=== PATIENT | male | born 1970 | race Caucasian/White ===

== ENCOUNTER 2016-06-23 08:32 | Emergency (ER) | payer OTHER ==
[2016-06-23 08:48] VITALS: BP 109/79
--- NOTE | 2016-06-23 09:04 | UC ---
Respiratory Complaint HPI - HPI Summary HPI Summary: The patient comes in today for: 1. Sore throat, cough, sweating: Onset: 5 days ago. Palliative/provocative: swallowing makes it worse, as does hot liquids. Quality: Sore Region: Posterior pharynx. Severity: 5/10 Time: Constant. Associated symptoms: Rhinitis: None. Cough: Yellow Sinus pressure: Present-comes and goes. Fevers: Unknown. Chest pain: upper airway with coughing. Dyspnea: None * - History of Current Complaint Chief Complaint: UCRespiratory Stated Complaint: SORE THROAT Time Seen by Provider: 06/23/16 08:55 Hx Obtained From: Patient - Allergies/Home Medications Allergies/Adverse Reactions: Allergies Allergy/AdvReac Type Severity Reaction Status Date / Time No Known Drug Allergy Allergy Unknown Verified 06/23/16 08:40 Reaction Details seasonal Allergy Sneezing Uncoded 06/23/16 08:40 PMH/Surg Hx/FS Hx/Imm Hx Previously Healthy: No - Multiple operations right foot, sleep apnea. Endocrine History Of: Reports: Thyroid Disease - HYPOTHYROID, Dyslipidemia - He is on medication for this. Denies: Diabetes, Hyperthyroidism, Hypothyroidism Cardiovascular History Of: Reports: Hypertension - ON MEDICATION FOR Denies: Cardiac Disorders, Pacemaker/ICD, Myocardial Infarction, Congestive Heart Failure, Atrial Fibrillation, Deep Vein Thrombosis, Bleeding Disorders Respiratory History Of: Reports: Bronchitis - PRESENTLY STARTED ABOUT 3 DAYS AGO , ON ANTIBIOTIC Denies: COPD, Asthma, Pneumonia, Pulmonary Embolism GI/ History Of: Denies: Gastroesophageal Reflux, Ulcer, Gastrointestinal Bleed, Gall Bladder Disease, Kidney Stones, Diverticulitis, Renal Disease, Urosepsis Neurological History Of: Reports: Migraine - MAYBE 4 PER YEAR-NONE RECENTLY Denies: TIA, CVA, Dementia, Seizures Psychological History Of: Denies: Anxiety, Depression, Bipolar Disorder, Schizophrenia, Post Traumatic Stress Disorder Cancer History Of: Denies: Lung Cancer, Colorectal Cancer, Breast Cancer, Prostate Cancer, Cervical Cancer Other History Of: Negative For: HIV, Hepatitis B, Hepatitis C, Anticoagulant Therapy - Surgical History Surgical History: Yes Surgery Procedure, Year, and Place: 1990 RIGHT FOOT SURGERY FOR OSTEOMYLITIS, [facility]. 2014 RIGHT KNEE [place]ISC[place] [facility] [place] [facility] [place]. 2009 OPEN CHOLECYSTECTOMY, [facility]. 2008 BOWEL OBSTRUCTION, APPENDECTOMY REPAIR[facility]. 2011 SINUS SURGERY, [facility] - Family History Known Family History: Positive: Cardiac Disease, Hypertension - Social History Occupation: Unemployed Alcohol Use: None Substance Use Type: Prescribed Smoking Status (MU): Former Smoker Type: Cigarettes Amount Used/How Often: 3 PPD X 8 YRS Length of Time of Smoking/Using Tobacco: 8 YEARS Have You Smoked in the Last Year: No When Did the Patient Quit Smoking/Using Tobacco: 1994 - Immunization History Most Recent Influenza Vaccination: not this season Review of Systems Constitutional: Negative Skin: Negative Eyes: Negative ENT: Sore Throat Respiratory: Cough Cardiovascular: Negative Gastrointestinal: Negative Genitourinary: Negative All Other Systems Reviewed And Are Negative: Yes Physical Exam Triage Information Reviewed: Yes Appearance: Well-Appearing, No Pain Distress, Well-Nourished Vital Signs: Initial Vital Signs Temp 97.9 F 06/23/16 08:43 Pulse 77 06/23/16 08:43 Resp 16 06/23/16 08:43 BP 109/79 06/23/16 08:43 Pulse Ox 96 06/23/16 08:43 Vital Signs Reviewed: Yes Eyes: Positive: Conjunctiva Clear. Negative: Discharge ENT: Positive: Hearing grossly normal. Negative: Pharyngeal erythema, Nasal congestion, Nasal drainage, TM bulging, TM dull, TM red, Tonsillar swelling, Tonsillar exudate Dental: Negative: Gross Decay/Caries @, Dental Fracture @ Neck: Positive: Supple, Nontender, No Lymphadenopathy. Negative: Nuchal Rigidity Respiratory: Positive: Chest non-tender, Lungs clear, Normal breath sounds, No respiratory distress, No accessory muscle use. Negative: Accessory muscle use, Stridor, Wheezing Cardiovascular: Positive: RRR, No Murmur Abdomen Description: Positive: Nontender, No Organomegaly, Soft. Negative: Distended, Guarding Musculoskeletal: Positive: Strength Intact, ROM Intact Neurological: Positive: Alert, Muscle Tone Normal Psychological: Positive: Age Appropriate Behavior, Consolable Skin: Negative: rashes, breakdown UC Diagnostic Evaluation - Laboratory O2 Sat by Pulse Oximetry: 96 Respiratory Course/Dx - Differential Dx/Diagnosis Differential Diagnosis/HQI/PQRI: Bronchitis, Laryngitis, Sinusitis Provider Diagnoses: Bronchitis. Pharyngitis Discharge - Discharge Plan Condition: Stable Disposition: HOME Patient Education Materials: Pharyngitis (ED), Acute Bronchitis (ED) Referrals: Lorenzo Fierro MD [Primary Care Provider] - 1 Week (Please see your primary care provider in about a week to see how well you are doing. If you get worse, please be seen sooner.)
== END 2016-06-23 09:18 | disposition home or self-care (01) ==
LOC: UCCORT 08:32
DX: J40 Bronchitis, not specified as acute or chronic (principal); I10 Essential (primary) hypertension; E03.9 Hypothyroidism, unspecified; Z87.891 Personal history of nicotine dependence
CPT/HCPCS: 99212; G0463

== ENCOUNTER 2016-11-17 15:52 | Emergency (ER) | payer OTHER ==
[2016-11-17] MEDS ORDERED: Gadoteridol* (CONTRAST) 279.3 MG/ML 10 ML IV ONE (18:59)
--- NOTE | 2016-11-17 19:31 | RAD ---
INDICATION: Headaches COMPARISON: MRI brain June 11, 2008 TECHNIQUE: sagittal T1 FLAIR, axial diffusion, axial T1 FLAIR, axial T2, axial T2 FLAIR, and SWI images were acquired. The plantar T1-weighted is contrast images were acquired as well utilizing 20 mL of ProHance FINDINGS: Craniocervical junction: The craniocervical junction appears normal. Ventricles/sulci: The ventricles and cisterns are normal in size and configuration for age. Brain parenchyma: There are no focal parenchymal abnormalities. There is no abnormal enhancement. There is no evidence of intracranial mass or mass effect. The diffusion weighted images show no evidence of acute ischemia. Intracranial hemorrhage: There is no intracranial hemorrhage. Extra-axial spaces: There are no extra-axial fluid collections or masses. Orbits: There are no MR abnormalities of the orbital structures. Paranasal sinuses/mastoid: There is mild frontal sinusitis without acute air-fluid level. The remaining paranasal sinuses are clear. The mastoid air cells are well aerated.. Vascular: No abnormalities are seen. Other: None IMPRESSION: NO INTRACRANIAL ABNORMALITIES. MILD FRONTAL SINUSITIS
[2016-11-17] MEDS ORDERED: Ondansetron INJ* 2 MG/ML VIAL IV ONE (19:44)
[2016-11-17] MEDS ORDERED: HYDROmorphone* 1 MG/ML 1 ML SYR IV ONE (19:44)
[2016-11-17] MEDS ORDERED: Levofloxacin TAB* 250 MG PO ONE (20:18)
[2016-11-17] MEDS ORDERED: Levofloxacin TAB* 750 MG ONE (20:19)
[2016-11-17 20:28] VITALS: BP 116/74
--- NOTE | 2016-11-17 21:50 | ED ---
Rigoberto Yu Alfonso, scribed for Luis Alberto Leong MD on 11/17/16 at 1624 . Headache - HPI Summary HPI Summary: This patient is a 46 year old male presenting to [facility] for a constant sharp headache since 1300 today. This headache began in the occipital lobe (3 days ago ) and radiated to the adventism and eyes (1300 today). He reports never having a headache like this before. The pain is rated 7/10 in severity. Symptoms aggravated by light. Symptoms not alleviated by Tylenol, Excedrin, and ice. He denies nausea, weakness, numbness, tingling, and a sore neck. Patient referred to ED from [facility] for a neurology consult. - History Of Current Complaint Chief Complaint: EDHeadache Stated Complaint: NEUROLOGY CONSULT Time Seen by Provider: 11/17/16 16:07 Hx Obtained From: Patient Onset/Duration: Sudden Onset, Started days ago - 3 days ago, Still Present Initially Headache Was: Moderate Currently Pain Is: Current Pain Scale(0-10)= - 7/10, Moderate Timing: Constant, Days - 3 days Character: Sharp Location of Headache: Occipital Radiates to: Radiated to the adventism and eyes at 1300 today Aggravating Factor: Bright Lights Allevating Factors: Nothing, Other (Noted In Comments) - Symptoms not alleviated by Tylenol, Excedrin, and ice Associated Signs And Symptoms: Other (Noted In Comments) - Denies nausea, weakness, numbness, tingling, and a sore neck - Allergies/Home Medications Allergies/Adverse Reactions: Allergies Allergy/AdvReac Type Severity Reaction Status Date / Time No Known Drug Allergy Allergy Unknown Verified 06/23/16 08:40 Reaction Details seasonal Allergy Sneezing Uncoded 06/23/16 08:40 PMH/Surg Hx/FS Hx/Imm Hx Endocrine/Hematology History: Reports: Hx Thyroid Disease - HYPOTHYROID Denies: Hx Anticoagulant Therapy, Hx Diabetes Cardiovascular History: Reports: Hx Hypertension - ON MEDICATION FOR Denies: Hx Congestive Heart Failure, Hx Deep Vein Thrombosis, Hx Myocardial Infarction, Hx Pacemaker/ICD Respiratory History: Reports: Hx Sleep Apnea Denies: Hx Asthma, Hx Chronic Obstructive Pulmonary Disease (COPD), Hx Lung Cancer, Hx Pneumonia, Hx Pulmonary Embolism GI History: Reports: Hx Gastroesophageal Reflux Disease - NO PROBLEMS SINCE TAKING PROBIOTIC - 5-6 YEARS, Hx Hiatal Hernia - HAD SURGERY Denies: Hx Gall Bladder Disease, Hx Gastrointestinal Bleed, Hx Ulcer, Hx Urosepsis History: Denies: Hx Kidney Stones, Hx Renal Disease Musculoskeletal History: Reports: Hx Arthritis - BILAT KNEES, RIGHT ANKLE, FOOT , Hx Bursitis - RIGHT FOOT Sensory History: Denies: Hx Contacts or Glasses, Hx Hearing Aid Opthamlomology History: Denies: Hx Contacts or Glasses Neurological History: Reports: Hx Migraine - MAYBE 4 PER YEAR-NONE RECENTLY Denies: Hx Dementia, Hx Seizures, Hx Transient Ischemic Attacks (TIA), Other Neuro Impairments/Disorders Psychiatric History: Denies: Hx Anxiety, Hx Depression, Hx Panic Disorder, Hx Schizophrenia, Hx Bipolar Disorder - Surgical History Surgery Procedure, Year, and Place: 1990 RIGHT FOOT SURGERY FOR OSTEOMYLITIS, [facility]. 2014 [place] [facility] [place] [facility] [place] 2009 OPEN CHOLECYSTECTOMY, [facility]. 2008 BOWEL OBSTRUCTION, APPENDECTOMY REPAIR[facility]. 2010 SINUS SURGERY, [facility] Anesthesia Reactions: No Infectious Disease History: Denies: Traveled Outside the in Last 30 Days - Family History Known Family History: Positive: Cardiac Disease, Hypertension - Social History Alcohol Use: None Substance Use Type: Reports: Prescribed Smoking Status (MU): Former Smoker Type: Cigarettes Amount Used/How Often: 3 PPD X 8 YRS Length of Time of Smoking/Using Tobacco: 8 YEARS Have You Smoked in the Last Year: No Review of Systems Negative: Nausea Positive: Arthralgia - Negative sore neck Neurological: Other - Negative weakness Positive: Headache - This thunder clap headache began in the occipital lobe (3 days ago) and radiated to the adventism and eyes (1300 today).. Negative: Weakness , Numbness All Other Systems Reviewed And Are Negative: Yes Physical Exam Triage Information Reviewed: Yes Vital Signs On Initial Exam: Initial Vitals Pulse Resp BP Pulse Ox 78 17 127/80 96 11/17/16 15:57 11/17/16 15:57 11/17/16 15:57 11/17/16 15:57 Vital Signs Reviewed: Yes Appearance: Positive: Well-Appearing, No Pain Distress, Obese Skin: Positive: Warm, Skin Color Reflects Adequate Perfusion, Dry Head/Face: Positive: Normal Head/Face Inspection Eyes: Positive: Normal ENT: Positive: Normal ENT inspection Neck: Positive: Supple, Nontender Respiratory/Lung Sounds: Positive: Clear to Auscultation, Breath Sounds Present Cardiovascular: Positive: RRR Abdomen Description: Positive: Nontender, Soft Bowel Sounds: Positive: Present Musculoskeletal: Positive: Normal Neurological: Positive: Normal, Sensory/Motor Intact, Alert, Oriented to Person Place, Time, CN Intact II-III Psychiatric: Positive: Affect/Mood Appropriate Diagnostics - Vital Signs Vital Signs Pulse Resp BP Pulse Ox 11/17/16 15:57 78 17 127/80 96 - Laboratory Lab Statement: Any lab studies that have been ordered have been reviewed, and results considered in the medical decision making process. - Additional Comments Diagnostic Additional Comments: Brain MRI : NO INTRACRANIAL ABNORMALITIES. MILD FRONTAL SINUSITIS Headache Course/Dx - Course Course Of Treatment: Mr. Roque was sent over from [place] ED for evaluation of a OSORIO that came on suddenly and has lasted 3 days. He has had a litlle bloody D/C from his right nare when blowing. His W/U in [place] was unremarkable except for an unusual area of hyperattenuation on CT. An MRI was recommended. Dr. Lopez was consulted and agreed with the MRI which was negative except for sinusitis. I will treat him for sinusitis and recommend F/ U. - Diagnoses Provider Diagnoses: Sinusitis - Physician Notifications Discussed Care Of Patient With: Lindsay Lopez Time Discussed With Above Provider: 16:53 Instructed by Provider To: Other - Dr. Lopez (neurologist) was consulted and will call back with treatment plan. Discharge - Discharge Plan Condition: Stable Disposition: HOME Prescriptions: Levofloxacin TAB* [Levaquin TAB*] 750 mg PO DAILY #10 tab Patient Education Materials: Sinusitis (ED) Referrals: Lorenzo Fierro MD [Primary Care Provider] - 3 Days The documentation as recorded by the Rigoberto corea Alfonso accurately reflects the service I personally performed and the decisions made by me, Luis Alberto Leong MD.
== END 2016-11-17 20:30 | disposition home or self-care (01) ==
LOC: ED 15:52
DX: J32.9 Chronic sinusitis, unspecified (principal); R51 Headache; Z87.891 Personal history of nicotine dependence
CPT/HCPCS: 70553; 96374; 96375; 99283; A9270-GY; A9579; J1170; J2405

== ENCOUNTER 2017-07-09 07:15 | Emergency (ER) | payer OTHER ==
[2017-07-09 07:26] VITALS: BP 144/90
--- NOTE | 2017-07-09 07:42 | UC ---
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 denies fever or any other sx but cough is interrupting sleep. " Quit smoking 25 yrs ago. Had forehead pressure 3 days ago but that resolved. no known fever. no wheezing. + body aches. Exposed to flu at his friends house - child in that household is now hospitalized with flu. - History of Current Complaint Chief Complaint: UCRespiratory Stated Complaint: PRODUCTIVE COUGH Pain Intensity: 0 - Allergies/Home Medications Allergies/Adverse Reactions: Allergies Allergy/AdvReac Type Severity Reaction Status Date / Time amoxicillin [From Augmentin] Allergy Intermediate Rash Verified 07/09/17 07:27 clavulanic acid Allergy Intermediate Rash Verified 07/09/17 07:27 [From Augmentin] seasonal Allergy Sneezing Uncoded 01/20/17 09:33 Home Medications: Home Medications Thyroid,Pork [[place] Thyroid] 07/09/17 [History] oxyCODONE/Acetamin 5/325 MG* [Percocet 5/325 TAB*] 07/09/17 [History] PMH/Surg Hx/FS Hx/Imm Hx Previously Healthy: Yes Endocrine History: Hypothyroidism Cardiovascular History: Hypertension Other History Of: Negative For: HIV, Hepatitis B, Hepatitis C, Anticoagulant Therapy - Surgical History Surgical History: Yes Surgery Procedure, Year, and Place: 1990 RIGHT FOOT SURGERY FOR OSTEOMYLITIS, [facility]. 2014 RIGHT KNEE TORN MENISCUS REPAIR, [facility] [place]. 09/2014 RIGHT FOOT FUSION, [facility] [place]. 2009 OPEN CHOLECYSTECTOMY, [facility]. 2008 BOWEL OBSTRUCTION, APPENDECTOMY REPAIR-[facility]. 2011 SINUS SURGERY, [facility] - Family History Known Family History: Positive: Cardiac Disease, Hypertension - Social History Alcohol Use: None Substance Use Type: Prescribed Smoking Status (MU): Former Smoker Type: Cigarettes Amount Used/How Often: 3 PPD X 8 YRS Length of Time of Smoking/Using Tobacco: 8 YEARS Have You Smoked in the Last Year: No When Did the Patient Quit Smoking/Using Tobacco: 1994 Household Exposure Type: Cigarettes - Immunization History Most Recent Influenza Vaccination: not this season Review of Systems Constitutional: Chills, Fatigue Skin: Negative Eyes: Negative ENT: Sore Throat, Ear Ache, Nasal Discharge Respiratory: Cough Cardiovascular: Negative Gastrointestinal: Negative Genitourinary: Negative Motor: Negative Neurovascular: Negative Musculoskeletal: Myalgia Neurological: Negative Psychological: Negative Is Patient Immunocompromised?: No All Other Systems Reviewed And Are Negative: Yes Physical Exam Triage Information Reviewed: Yes Appearance: Well-Appearing, No Pain Distress, Well-Nourished Vital Signs: Initial Vital Signs Temp 98.6 F 07/09/17 07:21 Pulse 100 07/09/17 07:21 Resp 18 07/09/17 07:21 BP 144/90 07/09/17 07:21 Pulse Ox 97 07/09/17 07:21 Eye Exam: Normal ENT: Positive: Hearing grossly normal, Pharyngeal erythema, Nasal congestion, TMs normal. Negative: Tonsillar swelling, Tonsillar exudate, Sinus tenderness Neck exam: Normal Neck: Positive: Supple, Nontender, No Lymphadenopathy Respiratory: Positive: Lungs clear, Normal breath sounds, No respiratory distress, No accessory muscle use, Other: - initial mild wheeze on left that cleared with loud cough. that was the only time he coughed during entire visit.. Negative: Crackles, Rhonchi, Stridor, Wheezing Cardiovascular Exam: Normal Cardiovascular: Positive: RRR, No Murmur, Pulses Normal Abdomen Description: Positive: Nontender, Soft Neurological Exam: Normal Psychological Exam: Normal Skin Exam: Normal UC Diagnostic Evaluation - Laboratory O2 Sat by Pulse Oximetry: 97 Respiratory Course/Dx - Course Course Of Treatment: influenza rapid negative - Differential Dx/Diagnosis Differential Diagnosis/HQI/PQRI: Asthma, Bronchitis, Influenza, Sinusitis Provider Diagnoses: viral URI Discharge - Discharge Plan Condition: Stable Disposition: HOME Referrals: Lorenzo Fierro MD [Primary Care Provider] -
== END 2017-07-09 08:18 | disposition home or self-care (01) ==
LOC: UCCORT 07:15
DX: J06.9 Acute upper respiratory infection, unspecified (principal); Z87.891 Personal history of nicotine dependence
CPT/HCPCS: 87502; 99212; G0463

== ENCOUNTER 2017-07-20 12:11 | Emergency (ER) | payer OTHER ==
[2017-07-20] MEDS ORDERED: Ketorolac INJ* 30 MG/ML 1 ML VIAL IM ONE (14:08)
--- NOTE | 2017-07-20 14:12 | UC ---
Shoulder Pain HPI - HPI Summary HPI Summary: 47 yo male with gradual onset of progressively worsening right shoulder pain no injury he is unable to move shoulder - History of Current Complaint Chief Complaint: UCUpperExtremity Stated Complaint: RT SHOULDER COMPLAINT Time Seen by Provider: 07/20/17 14:01 Hx Obtained From: Patient Onset/Duration: Gradual Onset, Lasting Days Timing: Constant Severity Initially: Severe Severity Currently: Severe Location Of Pain: Is Discrete @ Pain Intensity: 10 Pain Scale Used: 0-10 Numeric Character: Sharp, Dull, Aching, Throbbing, Spasmodic Aggravating Factor(s): Movement, Lifting, Internal Rotation, External Rotation, Abduction Alleviating Factor(s): Nothing Related History: Dominant Hand Right - Allergies/Home Medications Allergies/Adverse Reactions: Allergies Allergy/AdvReac Type Severity Reaction Status Date / Time amoxicillin [From Augmentin] Allergy Intermediate Rash Verified 07/20/17 13:53 clavulanic acid Allergy Intermediate Rash Verified 07/20/17 13:53 [From Augmentin] seasonal Allergy Sneezing Uncoded 07/20/17 13:53 Home Medications: Home Medications Cyclobenzaprine TAB* [Flexeril 10 MG TAB*] 5 mg PO TID PRN 07/20/17 [History Confirmed 07/20/17] Pravastatin Sodium [Pravachol] 40 mg PO DAILY 07/20/17 [History Confirmed ] PMH/Surg Hx/FS Hx/Imm Hx Previously Healthy: Yes Cardiovascular History: Hypertension GI/ History: Ulcer Other History Of: Negative For: HIV, Hepatitis B, Hepatitis C, Anticoagulant Therapy - Surgical History Surgical History: Yes Surgery Procedure, Year, and Place: 1990 RIGHT FOOT SURGERY FOR OSTEOMYLITIS, [facility]. 2014 RIGHT KN[place] [facility] [place] [facility] [place] 2010 OPEN CHOLECYSTECTOMY, [facility]. 2009 BOWEL OBSTRUCTION, APPENDECTOMY REPAIR-[facility]. 2011 SINUS SURGERY, [facility] - Family History Known Family History: Positive: Cardiac Disease, Hypertension, Diabetes - Social History Alcohol Use: None Substance Use Type: Prescribed Smoking Status (MU): Former Smoker Type: Cigarettes Amount Used/How Often: 3 PPD X 8 YRS Length of Time of Smoking/Using Tobacco: 8 YEARS Have You Smoked in the Last Year: No When Did the Patient Quit Smoking/Using Tobacco: 1994 Household Exposure Type: Cigarettes - Immunization History Most Recent Influenza Vaccination: not this season Review of Systems Constitutional: Negative Skin: Negative Eyes: Negative ENT: Negative Respiratory: Negative Cardiovascular: Negative Gastrointestinal: Negative Genitourinary: Negative Motor: Negative Neurovascular: Negative Musculoskeletal: Arthralgia Neurological: Negative Psychological: Negative Is Patient Immunocompromised?: No All Other Systems Reviewed And Are Negative: Yes Physical Exam Triage Information Reviewed: Yes Appearance: Well-Appearing, No Pain Distress, Well-Nourished Vital Signs: Initial Vital Signs Temp 98.1 F 07/20/17 13:57 Pulse 98 07/20/17 13:57 Resp 20 07/20/17 13:57 BP 134/101 07/20/17 13:57 Pulse Ox 98 07/20/17 13:57 Vital Signs Reviewed: Yes Eyes: Positive: Conjunctiva Clear ENT: Positive: Hearing grossly normal, Uvula midline. Negative: Nasal congestion, Nasal drainage, Tonsillar swelling, Tonsillar exudate, Trismus, Muffled voice, Dental tenderness, Sinus tenderness Neck: Positive: Supple, Nontender, No Lymphadenopathy Respiratory: Positive: Lungs clear, Normal breath sounds, No respiratory distress, No accessory muscle use Cardiovascular: Positive: RRR, No Murmur Musculoskeletal: Positive: No Edema, ROM Limited @ - right shoulder Neurological: Positive: Alert Psychological Exam: Normal Skin Exam: Normal Diagnostics - Radiology No standard instances Xray Interpretation: Positive (See Comments) - IMPRESSION: Mild widening of AC joint. Irregularity presumably in the anterior labrum for which a labral tear or bony fragment cannot BE excluded. Radiology Interpretation Completed By: Radiologist Shoulder Course/Dx - Differential Dx/Diagnosis Provider Diagnoses: right shoulder pain. ? torn labrum vs calcific tendonitis vs other Discharge - Discharge Plan Condition: Stable Disposition: HOME Patient Education Materials: Shoulder Pain (ED) Referrals: Zak Hurt MD [Medical Doctor] - Additional Instructions: sling I suggest you try to get into see Dr. Hurt tomorrow You may need an MRI to determine the cause of this Images Front/Back of Body, Lg ([place]): 1 - tender bicipital groove. unable to abduct. pain externally rotating >> int rotating
--- NOTE | 2017-07-20 15:00 | RAD ---
Indication: Right shoulder pain. 4 views of the right shoulder demonstrates mild widening of AC joint. There may be a bony fragment adjacent to the anterior labrum. IMPRESSION: Mild widening of AC joint. Irregularity presumably in the anterior labrum for which a labral tear or bony fragment cannot BE excluded.
[2017-07-20 15:10] VITALS: BP 126/77
== END 2017-07-20 15:14 | disposition home or self-care (01) ==
LOC: UCCORT 12:11
DX: M25.511 Pain in right shoulder (principal); I10 Essential (primary) hypertension
CPT/HCPCS: 96372; 99213; G0463; J1885

== ENCOUNTER 2017-10-11 06:19 | Day surgery (SDC) | payer OTHER ==
--- NOTE | 2017-10-03 23:40 | HP ---
HISTORY AND PHYSICAL: DATE OF SURGERY/ADMISSION: 10/11/17 DATE OF OFFICE VISIT: 10/03/17 SURGEON: Huyen Crespo MD * (DICTATED BY ARAM NELSON) PROCEDURE: Right knee arthroscopy with partial lateral meniscectomy, possible chondroplasty, possible synovectomy. CHIEF COMPLAINT: Right knee pain. HISTORY OF PRESENT ILLNESS: Mr. Roque is a 47-year-old gentleman with continued complaints of right knee pain. An MRI confirms a lateral meniscus tear and he has elected to proceed with surgery, which is scheduled for with Dr. Crespo. PAST MEDICAL HISTORY: Hypertension, hypothyroidism, and sleep apnea. PAST SURGICAL HISTORY: Right foot surgery x3, right knee arthroscopy, sinus surgery, cholecystectomy, and appendectomy. CURRENT MEDICATIONS: 1. Vitamin C. 2. Turmeric. 3. Probiotic. 4. [place] Thyroid 180 mg daily. 5. Toprol 100 mg daily. ALLERGIES: AUGMENTIN. FAMILY HISTORY: Diabetes, coronary artery disease, cancer, and hypertension. SOCIAL HISTORY: This is a 47-year-old gentleman, lives with is girlfriend. He does not smoke, use drugs, or alcohol. REVIEW OF SYSTEMS: A complete 14-point review of systems was reviewed with the patient. It was positive for hypothyroidism. He denies a history of DVT, PE, hepatitis C, HIV, or anesthesia problems. PHYSICAL EXAMINATION GENERAL: He is well developed, well nourished, in no acute distress. He is alert and oriented x3. VITAL SIGNS: He stands 5 feet 8 inches tall, weighs 245 pounds. His blood pressure is 131/88, his heart rate is 86. HEENT: Normocephalic, atraumatic. NECK: Supple. No palpable lymph nodes. PULMONARY: The lungs are clear to auscultation bilaterally. CARDIO: Regular rate and rhythm. Strong S1, S2. ABDOMEN: Soft, nontender, nondistended. MUSCULOSKELETAL: Right lower extremity, the skin is intact. There are no open wounds or abrasions. He has a mild joint effusion. Some tenderness over the lateral joint line. Negative Adam. 2+ dorsalis pedis pulses. His lower extremity muscle group strengths are intact at 5/5, and he has intact sensation. NEUROLOGICAL: Cranial nerves II through XII are intact. ASSESSMENT AND PLAN: Mr. Roque is a 47-year-old gentleman with continued complaints of right knee pain. An MRI confirms a lateral meniscus tear and he has elected to proceed with right knee arthroscopy with partial lateral meniscectomy, possible chondroplasty, possible synovectomy. The surgery is scheduled for 10/11/[address] Cresop discussed the risks and benefits of the surgery at today's visit and all of his questions were answered. He will follow up with Dr. Crespo in 2 weeks after the surgery. ARAM NELSON [id number]/[facility] #: [id number] ALLEN
[~2017-10-11 06:19] MED LIST: Buffered Lidocaine 0.9% SYRIN* 5 ML/SYR SYRINGE INTRADERM ONE
[2017-10-11] MEDS ORDERED: ceFAZolin 2 GM PREMIX (*) 2 GM/50 ML BAG IVPB ONE (06:32)
[2017-10-11] MEDS ORDERED: Buffered Lidocaine 0.9% SYRIN* 5 ML/SYR SYRINGE ONE (06:32)
[2017-10-11] MEDS ORDERED: EPINEPHRINE 1 MG/ML 1 ML VIAL ONE ×2 (06:47→08:13)
[2017-10-11] MEDS ORDERED: methylPREDNISolone ACETATE 80* 80 MG/ML 1 ML VIAL ONE (06:47)
[2017-10-11] MEDS ORDERED: Bupivacaine 0.25% SDV* 30 ML ONE (06:48)
[2017-10-11] MEDS ORDERED: Scopolamine 1.5 mg* PATCH ONE (07:20)
[2017-10-11] MEDS ORDERED: Dexamethasone IV* 4 MG/ML 1 ML (4 MG) ONE (07:22)
[2017-10-11] MEDS ORDERED: Midazolam* 1 MG/ML 5 ML VIAL (5 MG) ONE (07:22)
[2017-10-11] MEDS ORDERED: fentaNYL* 50 MCG/ML 2 ML VIAL (100 MCG VIAL) ONE ×2 (07:22→08:44)
[2017-10-11] MEDS ORDERED: Propofol* 10 MG/ML 20 ML BTL IV PUSH ONE (07:22)
[2017-10-11] MEDS ORDERED: Ondansetron INJ* 2 MG/ML VIAL IV PRN (08:00)
[2017-10-11] MEDS ORDERED: Naloxone* 0.4 MG/ML 1 ML VIAL IV PRN (08:00)
[2017-10-11] MEDS ORDERED: HYDROcodone/ACETAMIN 5-325 MG* 1 TAB PO PRN (08:00)
[2017-10-11] MEDS ORDERED: DiMENhydriNATE IV* 50 MG/ML VIAL IV PUSH PRN (08:00)
[2017-10-11] MEDS ORDERED: oxyCODONE/Acetamin 5/325 MG* TAB PO PRN (08:00)
[2017-10-11] MEDS ORDERED: oxyCODONE/Acetamin 5/325 MG* TAB ONE (08:44)
[2017-10-11] MEDS: fentaNYL* 50 MCG/ML 2 ML VIAL (100 MCG VIAL) IV PRN ×2 (08:49→08:57)
[2017-10-11 09:50] VITALS: BP 129/88
--- NOTE | 2017-10-12 06:44 | OP ---
OPERATIVE REPORT: DATE OF OPERATION: 10/11/17 DATE OF : 70 SURGEON: Huyen Crespo MD BOATBUILDER WOOD: ARAM Barragan Ms. did help throughout the procedure with preparation of the leg, wound retraction, manipulation of the knee and wound closure. ANESTHESIOLOGIST: Tex San MD ANESTHESIA: General. PRE-OP DIAGNOSES: Right knee lateral meniscal tear, moderate osteoarthritis. POST-OP DIAGNOSES: Right knee lateral meniscal tear, severe degenerative osteoarthritis in a tricompartmental fashion. OPERATIVE PROCEDURE: Right knee arthroscopy with partial lateral meniscectomy. INDICATIONS: Mr. Brown is a 47-year-old gentleman, who had an acute injury when he fell down a bank several weeks ago twisting his right knee. He had difficulty extending the knee and weightbearing. He had mechanical symptoms consistent with meniscal tear and a lateral meniscal tear was confirmed on MRI. Due to the severe pain and decreased range of motion, the patient elected to have right knee arthroscopy with partial lateral meniscectomy. Informed consent was obtained from the patient. He understood the risks of surgery included but were not limited to damage to nearby structures, continued pain, need for further surgery, re-tear of the meniscus, stroke, heart attack, blood clot, and . He wished to proceed. COMPLICATIONS: None. SPECIMEN: None. ESTIMATED BLOOD LOSS: Less than 25 cc. INTRAOPERATIVE FINDINGS: Intraoperatively, the patient was noted to have a radial- type tear at the junction of the posterior middle thirds of the lateral meniscus. Also, a linear tear in the white-red zone extending along the posterior horn of the lateral meniscus. This involved the white-red and red- red zone. The patient was noted to have grade 3 and 4 Outerbridge cartilage changes in all 3 compartments. DESCRIPTION OF PROCEDURE: Mr. Brown was identified in the preanesthesia unit. His right lower extremity was marked as the correct operative side. Informed consent was signed and placed in chart. The patient was taken to the operating room and placed under general anesthesia. His right lower extremity was prepped and draped in the usual sterile fashion. Preop time-out was made to once again identify the patient's side and site. Appropriate perioperative antibiotics were given within 1 hour of incision. A 0.5-cm anterolateral portal incision was made with a 15 blade. This was carried down through the capsule. Trocar was introduced. The light and water sources were turned on. The suprapatellar pouch was immediately well visualized. A tour of the knee joints was performed. Suprapatellar pouch had no obvious abnormality. The patellofemoral compartment had exposed subchondral bone along the medial patellar facet, lateral patellar facet, and trochlear groove of the femur. This was grade 3 and 4 Outerbridge cartilage changes with severe arthritic changes noted. Medial gutters showed no loose body or plica. Medial compartment showed grade 3 and 4 Outerbridge cartilage change of medial femoral condyle. No obvious meniscal tear was noted. ACL and PCL were intact with some anterior inflammatory tissue. The knee was placed in a figure-of-4 position. A radial tear of the lateral meniscus was noted at the junction of the posterior and middle third of the meniscus. Linear tear was also noted in the white-red zone extending into the posterior horn of the lateral meniscus. There were grade 3 and 4 Outerbridge cartilage changes along the lateral femoral condyle and tibial plateau. Lateral gutters showed no obvious abnormality. Under direct visualization, a medial portal incision was made. A probe was introduced and a second tour of the knee joint was performed. No additional findings were noted. A straight biter was used to perform partial lateral meniscectomy until smooth border of meniscus was obtained. Radiofrequency ablation wand and shaver were used to further smooth the edge of the lateral meniscus. Further probing of the lateral meniscus showed no additional tears or flipped fragments. Probing of the medial meniscus showed no obvious meniscal tear. There were no specific cartilage flaps amenable to chondroplasty. The knee was copiously irrigated with sterile saline. All instruments were carefully removed. The incisions were closed using interrupted nylon 3-0 suture. Intraarticular injection of 80 mg Depo-Medrol and 6 cc of 0.25% Marcaine was placed in the knee joint. The patient's incisions were covered with Xeroform, 4x4s, and Webril. Eduard wrap and cold pack were placed over this. The patient's anesthesia was reversed without difficulty. He was taken to the PACU in stable condition. Intended weightbearing will be weightbearing as tolerated. Intended DVT prophylaxis will be aspirin. He will follow up in 2 weeks' time for incision check. [id number]/[facility] #: [id number] KALEIDA HEALTHBrenda
== END 2017-10-11 10:05 | disposition home or self-care (01) ==
LOC: OR 06:19
PROVIDERS: ATTEND Orthopaedic Surgery Adult Reconstructive Orthopaedic Surgery
DX: S83.281A Other tear of lateral meniscus, current injury, right knee, initial encounter (principal); W17.81XA Fall down embankment (hill), initial encounter; Y92.89 Other specified places as the place of occurrence of the external cause; I10 Essential (primary) hypertension; E03.9 Hypothyroidism, unspecified; G47.30 Sleep apnea, unspecified
CPT/HCPCS: A9270-GY; J0690; J1040; J1100; J2250; J2704; J3010

== ENCOUNTER 2017-10-17 07:25 | Emergency (ER) | payer OTHER ==
[2017-10-17 07:38] VITALS: BP 147/87
--- NOTE | 2017-10-17 07:54 | UC ---
Respiratory Complaint HPI - HPI Summary HPI Summary: 47 yo male with cough and sore throat x 5 days had menicus surgery 10/11 no fever or chills has brought up a lot of phelgm has gagged on phelgm no CP or SOB - History of Current Complaint Chief Complaint: UCRespiratory Stated Complaint: COUGH/ST Time Seen by Provider: 10/17/17 07:42 Hx Obtained From: Patient Onset/Duration: Gradual Onset, Lasting Days Timing: Constant Severity Initially: Moderate Severity Currently: Moderate Pain Intensity: 6 - throat Pain Scale Used: 0-10 Numeric Character: Cough: Productive Aggravating Factors: Deep Breaths Alleviating Factors: Bronchodilator - Allergies/Home Medications Allergies/Adverse Reactions: Allergies Allergy/AdvReac Type Severity Reaction Status Date / Time amoxicillin [From Augmentin] Allergy Intermediate Rash Verified 10/11/17 06:44 clavulanic acid Allergy Intermediate Rash Verified 10/11/17 06:44 [From Augmentin] seasonal Allergy Sneezing Uncoded 10/11/17 06:44 PMH/Surg Hx/FS Hx/Imm Hx Previously Healthy: Yes Respiratory History: Bronchitis - recently admitted for it (4 mos ago) Other History Of: Negative For: HIV, Hepatitis B, Hepatitis C, Anticoagulant Therapy - Surgical History Surgical History: Yes Surgery Procedure, Year, and Place: 1990 RIGHT FOOT SURGERY FOR OSTEOMYLITIS, [facility]. 2014 RIGHT KNEE TORN MENISCUS REPAIR, [facility]. 09/2014 RIGHT FOOT FUSION, [facility]. 2010 OPEN CHOLECYSTECTOMY, [facility]. 2008 BOWEL OBSTRUCTION, APPENDECTOMY REPAIR-[facility]. 2011 SINUS SURGERY, [facility]. 2018 right meniscus repair - Family History Known Family History: Positive: Cardiac Disease, Hypertension, Diabetes - Social History Alcohol Use: None Substance Use Type: None Smoking Status (MU): Former Smoker Type: Cigarettes Amount Used/How Often: 3 PPD X 8 YRS Length of Time of Smoking/Using Tobacco: 8 YEARS Have You Smoked in the Last Year: No When Did the Patient Quit Smoking/Using Tobacco: 1994 Household Exposure Type: Cigarettes - Immunization History Most Recent Influenza Vaccination: not this season Review of Systems Constitutional: Negative Skin: Negative Eyes: Negative ENT: Sore Throat Respiratory: Cough Cardiovascular: Negative Gastrointestinal: Negative Genitourinary: Negative Motor: Negative Neurovascular: Negative Musculoskeletal: Negative Neurological: Negative Psychological: Negative Is Patient Immunocompromised?: No All Other Systems Reviewed And Are Negative: Yes Physical Exam Triage Information Reviewed: Yes Appearance: Well-Appearing, No Pain Distress, Well-Nourished Vital Signs: Initial Vital Signs Temp 98 F 10/17/17 07:31 Pulse 92 10/17/17 07:31 Resp 16 10/17/17 07:31 BP 147/87 10/17/17 07:31 Pulse Ox 98 10/17/17 07:31 Vital Signs Reviewed: Yes Eyes: Positive: Conjunctiva Clear ENT: Positive: Hearing grossly normal, Pharyngeal erythema, TMs normal, Uvula midline. Negative: Nasal congestion, Nasal drainage, Tonsillar swelling, Tonsillar exudate, Trismus, Muffled voice, Hoarse voice, Sinus tenderness Neck: Positive: Supple, Nontender, No Lymphadenopathy Respiratory: Positive: Normal breath sounds, No respiratory distress, No accessory muscle use, Wheezing - with forced epiration Cardiovascular: Positive: RRR, No Murmur. Negative: Tachycardia Musculoskeletal: Positive: Strength Intact, ROM Intact, No Edema, Other: - right knee surgical sites look good/no lower extr edema/no calf tenderness or warmth Neurological: Positive: Alert Psychological Exam: Normal Skin Exam: Normal UC Diagnostic Evaluation - Laboratory O2 Sat by Pulse Oximetry: 98 - normal/not hypoxic Respiratory Course/Dx - Differential Dx/Diagnosis Provider Diagnoses: acute bronchitis Discharge - Sign-Out/Discharge Documenting (check all that apply): Discharge/Admit/Transfer - Discharge Plan Condition: Stable Disposition: HOME Prescriptions: DOXYcycline CAP(*) [DOXYcycline 100MG CAP(*)] 100 mg PO BID #14 cap Patient Education Materials: Acute Bronchitis (ED) Referrals: Lorenzo Fierro MD [Primary Care Provider] - 3 Days Additional Instructions: recheck for new or worsening symptoms use your inhaler mucinex or plain robitussin - Billing Disposition and Condition Condition: STABLE Disposition: HOME
== END 2017-10-17 07:54 | disposition home or self-care (01) ==
LOC: UCCORT 07:25
DX: J20.9 Acute bronchitis, unspecified (principal); Z88.1 Allergy status to other antibiotic agents; Z88.8 Allergy status to other drugs, medicaments and biological substances; Z87.891 Personal history of nicotine dependence
CPT/HCPCS: 99212; G0463

== ENCOUNTER 2018-03-05 07:07 | Emergency (ER) | payer OTHER ==
--- NOTE | 2018-03-05 07:21 | UC ---
Throat Pain/Nasal Andre HPI - HPI Summary HPI Summary: Patient presents to urgent care reporting 3 days of progressive head congestion , postnasal drip, sore throat. Patient states also has right ear pain. Patient states his significant other was diagnosed with bronchitis. Patient states he wears CPAP at night. Patient has a poorly humidify but does not. Patient states he's been having progressive congestion and facial pain. Patient reports some dental pain. Patient states he coughed out thick green sputum from the back of his throat this morning. Patient reports painful swallowing. No drooling. No analgesia taken. Patient has applied moist heat to his neck with little improvement. Patient states he feels a little congested in his chest. Occasional wheezing. Patient is not immunocompromised. Patient does not smoke cigarettes. Patient denies shortness of breath. Patient with decreased appetite. No nausea vomiting. Patient's medications reviewed this visit. - History of Current Complaint Stated Complaint: SORE THROAT,RUNNY NOSE Hx Obtained From: Patient Onset/Duration: Gradual Onset Severity: Mild Cough: Productive - PND - Allergies/Home Medications Allergies/Adverse Reactions: Allergies Allergy/AdvReac Type Severity Reaction Status Date / Time amoxicillin [From Augmentin] Allergy Intermediate Rash Verified 03/05/18 07:17 clavulanic acid Allergy Intermediate Rash Verified 03/05/18 07:17 [From Augmentin] seasonal Allergy Sneezing Uncoded 03/05/18 07:17 PMH/Surg Hx/FS Hx/Imm Hx Previously Healthy: Yes Endocrine History: Hypothyroidism Cardiovascular History: Hypertension Other History Of: Negative For: HIV, Hepatitis B, Hepatitis C, Anticoagulant Therapy - Surgical History Surgical History: Yes Surgery Procedure, Year, and Place: 1990 RIGHT FOOT SURGERY FOR OSTEOMYLITIS, [facility]. 2014 RIGHT KNEE TORN MENISCUS REPAIR, [facility]. 09/2014 RIGHT FOOT FUSION, [facility]. 2009 OPEN CHOLECYSTECTOMY, [facility]. 2008 BOWEL OBSTRUCTION, APPENDECTOMY REPAIR-[facility]. 2011 SINUS SURGERY, [facility]. 2018 right meniscus repair - Family History Known Family History: Positive: Cardiac Disease, Hypertension, Diabetes - Social History Occupation: Disabled Lives: With Family Alcohol Use: None Substance Use Type: None Smoking Status (MU): Former Smoker Type: Cigarettes Amount Used/How Often: 3 PPD X 8 YRS Length of Time of Smoking/Using Tobacco: 8 YEARS Have You Smoked in the Last Year: No When Did the Patient Quit Smoking/Using Tobacco: 1994 Household Exposure Type: Cigarettes - Immunization History Most Recent Influenza Vaccination: not this season Review of Systems Constitutional: Fatigue Skin: Negative ENT: Ear Ache, Nasal Discharge, Sinus Congestion, Sinus Pain/Tenderness All Other Systems Reviewed And Are Negative: Yes Physical Exam - Summary Physical Exam Summary: Vital Signs Reviewed: Yes A+Ox3, no distress Eyes: Conjunctiva Clear, CHENCHO. EOM intact and full ENT: Hearing grossly normal fluid right TM turbinates boggy and inflammed, + PND thick green, mild erythema, no exudate, uvula midline + TTP maxillary sinuses b/l L>R no TMJ pain Neck: Positive: Supple + cervical lymphadenopathy R>L Respiratory: Positive: No respiratory distress, No accessory muscle use + BS throughout few scattered wheeze, no rhonci Cardiovascular: RRR nl s1, s2 no m/r CBT <2 sec abd soft + BS nt/nd no guarding, no distension Musculoskeletal Exam: HOUSE x 4 without difficulty Strength Intact, ROM Intact Neurological: Positive: Alert, + sensation throughout Psychological: Positive: Normal Response To Family Skin: Positive: no rash, no ecchymosis Triage Information Reviewed: Yes Throat Pain/Nasal Course/Dx - Course Course Of Treatment: Pt presents with progressive sinus congestion postnasal drip. Patient now with right ear pain. Patient's significant other with bronchitis. Patient does wear CPAP machine. On exam patient consistent with sinusitis. Patient with fluid in his right ear. Patient with thick postnasal drip. We'll start patient on Flonase as well as antibiotic. Recommend patient clean a CPAP machine. Strongly recommend patient humidify his hematocrit seen. Secretion precaution. Motrin Tylenol. [id number] decongestant. Return precautions. Patient comfortable in agreement with plan. - Differential Dx/Diagnosis Provider Diagnoses: rhinosinusitis Discharge - Sign-Out/Discharge Documenting (check all that apply): Patient Departure All imaging exams completed and their final reports reviewed: No - Discharge Plan Condition: Stable Disposition: HOME Prescriptions: Azithromycin TAB* [Zithromax TAB (Z-TRAVIS) 250 mg #6 tabs] 2 tab PO .TODAY, THEN 1 DAILY #1 travis Fluticasone NASAL SPRAY 50MCG* [Flonase NASAL SPRAY 50MCG*] 2 spray BOTH NARES DAILY #1 btl Patient Education Materials: Rhinosinusitis (ED) Referrals: Lorenzo Fierro MD [Primary Care Provider] - Additional Instructions: - Stay well hydrated. Drink plenty of non-alcoholic, non-caffinated beverages. - Alternate ibuprofen (Advil, Motrin) 600mg and Tylenol every 3 hours for pain or fever. Take with food. Do NOT take for more than 4-5 days. - These infections are spread by secretions - do NOT share eating or drinking utensils - clean items you share with other people such as cell phones, computer mouse, TV remote, computer tablets,etc. Once you have been antibiotics for 2 days, change your toothbrush and your pillowcase. -Once you start to feel better, clean your CPAP machine thoroughly - get plenty of restful sleep - humidify the air in the room where you sleep - boil water, run a hot steam shower, vaporizer, cups of water by heat register - okay to take over the counter decongestant and cough medication. - use nasal spray as prescribed - contact your doctor or return with questions or concerns - Billing Disposition and Condition Condition: STABLE Disposition: Home
[2018-03-05 07:27] VITALS: BP 125/84
--- NOTE | 2018-03-05 11:15 | UC ---
Discharge - Sign-Out/Discharge Documenting (check all that apply): Post-Discharge Follow Up All imaging exams completed and their final reports reviewed: Yes - Discharge Plan Condition: Stable Disposition: HOME Prescriptions: Azithromycin TAB* [Zithromax TAB (Z-TRAVIS) 250 mg #6 tabs] 2 tab PO .TODAY, THEN 1 DAILY #1 travis Fluticasone NASAL SPRAY 50MCG* [Flonase NASAL SPRAY 50MCG*] 2 spray BOTH NARES DAILY #1 btl Patient Education Materials: Rhinosinusitis (ED) Referrals: Lorenzo Fierro MD [Primary Care Provider] - Additional Instructions: - Stay well hydrated. Drink plenty of non-alcoholic, non-caffinated beverages. - Alternate ibuprofen (Advil, Motrin) 600mg and Tylenol every 3 hours for pain or fever. Take with food. Do NOT take for more than 4-5 days. - These infections are spread by secretions - do NOT share eating or drinking utensils - clean items you share with other people such as cell phones, computer mouse, TV remote, computer tablets,etc. Once you have been antibiotics for 2 days, change your toothbrush and your pillowcase. -Once you start to feel better, clean your CPAP machine thoroughly - get plenty of restful sleep - humidify the air in the room where you sleep - boil water, run a hot steam shower, vaporizer, cups of water by heat register - okay to take over the counter decongestant and cough medication. - use nasal spray as prescribed - contact your doctor or return with questions or concerns - Billing Disposition and Condition Condition: STABLE Disposition: Home
== END 2018-03-05 07:57 | disposition home or self-care (01) ==
LOC: UCCORT 07:07
DX: J32.9 Chronic sinusitis, unspecified (principal); Z87.891 Personal history of nicotine dependence
CPT/HCPCS: 87651; 99212; G0463

== ENCOUNTER 2019-06-14 10:05 | Emergency (ER) | payer OTHER ==
--- OUTSIDE RECORDS SUMMARY | 2019-06-14 10:12 | XMS REPORT | Continuity of Care Document ---
:1970 External Reference #:[id number] Author Name Papo Lara M.D. (transmitted by agent of provider Ita Crouch) Address [address] [place] [address] Care Team Providers Name Role Phone Lorenzo Fierro MD - Internal Care Team Information Education Rn Medicine Problems Active Problems Provider Date Gastroesophageal reflux disease Papo Lara M.D. Onset: 08/16/2011 Obstructive sleep apnea syndrome Papo Lara M.D. Onset: 08/16/2011 Glossopharyngeal neuralgia Papo Lara M.D. 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 Capsules [place] Thyroid 1 by mouth every 90tabs Papo Lara, 12/12/2017 120mg day M.D. Tablets Warfarin Sodium take 1 by mouth Unknown 1mg daily as directed Tablets Immunizations Description No Information Available Vital Signs Date Vital Result Comment 05/02/2019 10:26am Weight 247.00 lb Height 68 inches 5'8" BMI (Body Mass Index) 37.6 kg/m2 BP Systolic 117 mmHg BP Diastolic 81 mmHg Heart Rate 77 /min O2 % BldC Oximetry 96 % Body Temperature 97.3 F Pain Level 0 01/31/2019 1:05pm Weight 253.00 lb Height 68 inches 5'8" BMI (Body Mass Index) 38.5 kg/m2 BP Systolic 130 mmHg BP Diastolic 87 mmHg Heart Rate 72 /min O2 % BldC Oximetry 97 % Body Temperature 98.1 F Pain Level 0 Results Description No Information Available Procedures Date Code Description Status 01/31/2019 14444 Tympanometry Completed 01/31/2019 76625 Audiometry, Comprehensive Completed 01/31/2019 25888 Ultrasound Head/Neck Completed 01/31/2019 84144 Nasal Endoscopy, Diag. Completed Medical Devices Description No Information Available Encounters Type Date Location Provider Dx Diagnosis Office Visit 01/31/2019 Main Office Papo Lara M.D. G47.33 Obstructive sleep 1:00p apnea (adult) (pediatric) E66.9 Obesity, unspecified H90.3 Sensorineural hearing loss, bilateral H93.13 Tinnitus, bilateral E04.2 Nontoxic multinodular goiter E03.9 Hypothyroidism, unspecified J31.0 Chronic rhinitis J34.2 Deviated nasal septum Assessments Date Code Description Provider 01/31/2019 G47.33 Obstructive sleep apnea (adult) (pediatric) Papo Lara M.D. 01/31/2019 E66.9 Obesity, unspecified Papo Lara M.D. 01/31/2019 H90.3 Sensorineural hearing loss, bilateral Papo Lara M.D. 01/31/2019 H93.13 Tinnitus, bilateral Papo Lara M.D. 01/31/2019 E04.2 Nontoxic multinodular goiter Papo Lara M.D. 01/31/2019 E03.9 Hypothyroidism, unspecified Papo Lara M.D. 01/31/2019 J31.0 Chronic rhinitis Papo Lara M.D. 01/31/2019 J34.2 Deviated nasal septum Papo Lara M.D. Plan of Treatment 02/05/2016 - Ian Magana, MDD17.1 Benign lipomatous neoplasm of skin and subcutaneous tissue of trunkComments:I am still not sure of the etiology of his symptoms. If they persist, I suggested ortho referral. I do not think it is a good idea to do excion of the lipoma because the incision might add to the persistent pain in that area. He understood well. If the symptoms get worse, I would recommend the ortho referral. RTO PRN. Functional Status Description No Information Available Mental Status Description No Information Available Referrals Description No Information Available
[2019-06-14 10:33] VITALS: BP 125/86
--- NOTE | 2019-06-14 10:45 | UC ---
UC General HPI - HPI Summary HPI Summary: Patient here with dysuria. States he had unprotected sex on 06/09 and developed symptoms shortly afterward. No blood in urine. No penile lesions. No new low back pain. No fevers. No N/V Meds: Reviewed - History of Current Complaint Chief Complaint: UCSTDScreening Stated Complaint: URINARY Time Seen by Provider: 06/14/19 10:34 Pain Intensity: 8 - Allergy/Home Medications Allergies/Adverse Reactions: Allergies Allergy/AdvReac Type Severity Reaction Status Date / Time amoxicillin [From Augmentin] Allergy Intermediate Rash Verified 06/14/19 10:27 clavulanic acid Allergy Intermediate Rash Verified 06/14/19 10:27 [From Augmentin] seasonal Allergy Mild Sneezing Uncoded 06/14/19 10:27 PMH/Surg Hx/FS Hx/Imm Hx Previously Healthy: Yes Other History Of: Negative For: HIV, Hepatitis B, Hepatitis C, Anticoagulant Therapy - Surgical History Surgical History: Yes Surgery Procedure, Year, and Place: 1990 RIGHT FOOT SURGERY FOR OSTEOMYLITIS, [facility]. 2014 RIGHT KNEE TORN MENISCUS [place]PAIR, [facility] [place]. [place] RIGHT FOOT F[place], [facility] [place]. 2009 OPEN CHOLECYSTECTOMY, [facility]. 2008 BOWEL OBSTRUCTION, APPENDECTOMY REPAIR-[facility]. 2011 SINUS SURGERY, [facility]. 2018 Right Meniscus Repair - Family History Known Family History: Positive: Cardiac Disease, Hypertension, Diabetes - Social History Alcohol Use: Rare Substance Use Type: None Smoking Status (MU): Former Smoker Type: Cigarettes Amount Used/How Often: 3 PPD X 8 YRS Length of Time of Smoking/Using Tobacco: 8 YEARS Have You Smoked in the Last Year: No When Did the Patient Quit Smoking/Using Tobacco: 1994 Household Exposure Type: Cigarettes - Immunization History Most Recent Influenza Vaccination: not this season Review of Systems All Other Systems Reviewed And Are Negative: Yes Genitourinary: Positive: Dysuria Physical Exam Triage Information Reviewed: Yes Appearance: Well-Appearing Vital Signs: Initial Vital Signs Temp 98.3 F 06/14/19 10:29 Pulse 78 06/14/19 10:29 Resp 18 06/14/19 10:29 BP 125/86 06/14/19 10:29 Pulse Ox 95 06/14/19 10:29 Respiratory: Positive: Lungs clear, Normal breath sounds Cardiovascular: Positive: RRR, No Murmur Abdomen Description: Positive: Nontender, Other: - No CVA tenderness Course/Dx - Course Course Of Treatment: Patient with dysuria U/A : Neg Urine GC/C sent Ceftriaxone 250 mg IM x 1 given Plan Start doxycycline as prescribed We will contact you if you STI testing comes back positive If symptoms persist despite treatment, recommend follow up with urology - Diagnoses Provider Diagnosis: Sexually transmitted disease (STD) Discharge ED - Sign-Out/Discharge Documenting (check all that apply): Patient Departure All imaging exams completed and their final reports reviewed: No Studies - Discharge Plan Condition: Fair Disposition: HOME Prescriptions: DOXYcycline CAP(*) [DOXYcycline 100MG CAP(*)] 100 mg PO BID #20 cap Patient Education Materials: Sexually Transmitted Diseases (ED) Referrals: Lorenzo Fierro MD [Primary Care Provider] - Additional Instructions: Start doxycycline as prescribed We will contact you if your STI testing comes back positive If symptoms persist despite treatment, recommend follow up with urology - Billing Disposition and Condition Condition: FAIR Disposition: Home
[2019-06-14] MEDS ORDERED: cefTRIAXone VIAL(*) 1,000 MG VIAL IM ONE ×2 (11:18→12:14)
[2019-06-14] MEDS ORDERED: Lidocaine 1% MPF* 2 ML VIAL INJ ONE (11:42)
[2019-06-14] MEDS ORDERED: cefTRIAXone VIAL(*) 250 MG VIAL IM ONE (11:50)
[2019-06-14] MEDS ORDERED: Lidocaine 1% MPF ** 5 ML VIAL IM ONE ×2 (11:50→12:15)
[2019-06-14 17:38] LABS: HIV 4th Generation Nonreactive (Nonreactive)
[2019-06-15 13:28] LABS: Chlamydia trachomatis NAA Negative (Negative); Neisseria gonorrhoeae (GC) NAA Negative (Negative)
== END 2019-06-14 13:10 | disposition home or self-care (01) ==
LOC: UCCORT 10:05
DX: A64 Unspecified sexually transmitted disease (principal); Z87.891 Personal history of nicotine dependence; Z88.0 Allergy status to penicillin; Z91.09 Other allergy status, other than to drugs and biological substances
CPT/HCPCS: 36415; 81003; 86780; 87389; 87491; 87591; 96372; 99212; G0463; J0696

== ENCOUNTER 2020-09-19 10:24 | Observation (INO) ==
[~2020-09-19 10:24] MED LIST changes: -Buffered Lidocaine 0.9% SYRIN* 5 ML/SYR SYRINGE INTRADERM ONE; +Buffered Lidocaine 1% SYRIN 1 ml INTRADERM ONE; +Dexmedetomidine 200 mcg/2 ml 2 ml VIAL (200 mcg) ONE; +DiMENhydriNATE IV 50 mg/ml 1 ml VIAL IV PUSH PRN; +Lactated Ringers 1000 ml BAG 1,000 ML IV SCH; +Naloxone 0.4 mg VIAL 0.4 mg/ml 1 ml VIAL IV PRN; +Ondansetron 4 mg VIAL 2 MG/ML 2 ml VIAL IV PRN; +oxyCODONE/Acetamin 5/325 mg TAB PO PRN
[2020-09-19] MEDS ORDERED: ceFAZolin 2 GM in NS PREMIX 2 GM/100 ML BAG IVPB ONE (10:38)
[2020-09-19] MEDS ORDERED: fentaNYL 100 mcg/2 ml 50 MCG/ML VIAL ONE ×3 (11:41→17:07)
[2020-09-19] MEDS ORDERED: Midazolam 5 mg/5 ml VIAL 1 mg/ml 5 ml VIAL (5 mg) ONE (11:41)
[2020-09-19] MEDS ORDERED: Dexamethasone IV 4 MG/ML VIAL 1 ml VIAL ONE (11:41)
[2020-09-19] MEDS ORDERED: ROPIVACAINE 5 MG/ML 30 ML BTL (0.5%) ONE (11:42)
[2020-09-19] MEDS ORDERED: Ropivacaine 5 MG/ML 20 ML VIAL 0.5% (100 MG) ONE (12:21)
[2020-09-19] MEDS ORDERED: Midazolam 2 mg/2 ml VIAL 1 mg/ml 2 ml VIAL (2 mg) ONE ×2 (12:40→12:46)
[2020-09-19] MEDS ORDERED: Ondansetron 4 mg VIAL 2 MG/ML 2 ml VIAL ONE (13:40)
[2020-09-19] MEDS ORDERED: Propofol 10 MG/ML 20 ML BTL ONE (14:37)
[2020-09-19] MEDS ORDERED: diPHENhydraMINE IV 50 MG/ML 1 ml VIAL (BENADRYL) IV PRN (15:37)
[2020-09-19] MEDS ORDERED: Ondansetron ODT 4 mg TAB 4 MG TAB PO PRN (15:37)
[2020-09-19] MEDS ORDERED: diPHENhydraMINE 25 mg TAB PO PRN (15:37)
[2020-09-19] MEDS ORDERED: Magnesium Hydroxide LIQ 30 ML UDC PO PRN (15:37)
[2020-09-19] MEDS ORDERED: Lactulose 30 ml UDC PO PRN (15:37)
[2020-09-19] MEDS ORDERED: Ondansetron 4 mg VIAL 2 MG/ML 2 ml VIAL IV PRN (15:37)
[2020-09-19] MEDS: fentaNYL 100 mcg/2 ml 50 MCG/ML VIAL IV PRN ×4 (16:13→18:03)
[2020-09-19] MEDS ORDERED: oxyCODONE/Acetamin 5/325 mg TAB ONE (18:12)
[2020-09-19] MEDS: Lactated Ringers 1000 ml BAG 1,000 ML IV SCH (20:04)
[2020-09-19] MEDS: Magnesium Hydroxide LIQ 30 ML UDC PO SCH (21:30)
[2020-09-19] MEDS: ceFAZolin 1 GM ADVAN 1 GM in NS 0.9% 50 ML 50 ML IVPB SCH (21:34)
[2020-09-19] MEDS: oxyCODONE/Acetamin 5/325 mg TAB PO PRN (22:56)
[2020-09-20] MEDS: oxyCODONE/Acetamin 5/325 mg TAB PO PRN ×2 (03:29→07:23)
[2020-09-20 05:12] LABS: Hematocrit 35 % (42-52); Mean Platelet Volume 7.2 fL (7.4-10.4); Platelet Count 299 10^3/uL (150-450)
[2020-09-20] MEDS: ceFAZolin 1 GM ADVAN 1 GM in NS 0.9% 50 ML 50 ML IVPB SCH ×2 (05:31→13:25)
[2020-09-20] MEDS: Lactated Ringers 1000 ml BAG 1,000 ML IV SCH (05:36)
[2020-09-20 05:47] LABS: Calcium 8.9 mg/dL (8.6-10.3); EGFR African American 127.5 (>60); EGFR Non-African American 105.4 (>60); Potassium 4.6 mmol/L (3.5-5.0)
[2020-09-20] MEDS: Magnesium Hydroxide LIQ 30 ML UDC PO SCH (08:23)
[2020-09-20] MEDS ORDERED: oxyCODONE SR 10 mg TAB PO SCH (09:00)
[2020-09-20] MEDS ORDERED: Vitamin THERAPEUTIC TAB PO SCH (09:00)
[2020-09-20] MEDS ORDERED: HYDROmorphone 1 MG/1 ML SYRINGE IV SLOW PU PRN (11:53)
[2020-09-20 15:19] VITALS: BP 117/63
== END 2020-09-20 16:30 | disposition home or self-care (01) ==
LOC: SDS 10:24 → SSU 10:24 → EDSTATUS 13:30
PROVIDERS: ADMIT Orthopaedic Surgery Adult Reconstructive Orthopaedic Surgery; ATTEND Orthopaedic Surgery Adult Reconstructive Orthopaedic Surgery